=== PATIENT | male | born 1945 | race American Indian/Alaskan Native ===

== ENCOUNTER 2017-05-04 07:35 | Day surgery (SDC) | payer MEDICARE ==
[2017-05-01 11:33] VITALS: BMI 31.6
[2017-05-04] MEDS ORDERED: DiphenhydrAMINE 50 mg/ml Inj ONE (09:09)
[2017-05-04] MEDS ORDERED: Midazolam 2 MG/2 ML VIAL ONE (09:29)
[2017-05-04] MEDS ORDERED: Iodixanol 320 MG/ML 100 ML BOTTLE IV ONE ×2 (09:29→09:55)
[2017-05-04] MEDS ORDERED: Nitroglycerin 50mg in D5W 50 MG/250 ML BOTTLE IV ONE (09:50)
[2017-05-04 14:08] VITALS: BP 154/92; PULSE 70; RESP 18; TEMP 98.2; O2SAT 70
--- NOTE | 2017-05-07 05:01 | CARDCATH ---
PROCEDURE DATE: 05/04/2017 PROCEDURES: 1. Coronary angiography. 2. Left ventricular angiography. 3. Radiological supervision and interpretation of the coronary angiography and left ventricular angiography. CLINICAL INDICATIONS: 1. Exertional angina. 2. Abnormal stress test. 3. Hypertension. 4. Hyperlipidemia. 5. . PERFORMING PHYSICIAN: Dr. Ritchie Maddox. PROCEDURE: After informed consent the patient was prepped and draped in the usual sterile fashion. A 2% Lidocaine was given in the right wrist for local anesthesia. Using micropuncture technique, 6 [place] was introduced into right radial artery. A 6 [place] catheter was engaged into left main coronary artery. Left coronary injection has revealed left main divided into left anterior descending coronary artery and left circumflex coronary artery. Left main, left anterior descending artery and diagonal branches are patent. Left circumflex and obtuse marginal branch are patent. Right coronary artery was engaged using JR4 6 [place] diagnostic catheter. Right coronary angiography has revealed patent and dominant right coronary artery, marginal arteries and PDA. Using a 0.031 support wire JR4 catheter inserted into left ventricle. Hand injection was performed. Hand injection of the left ventricle confirmed normal LV systolic function with ejection fraction of 60%. No wall motion abnormalities noted. EDP 12. No gradient across the aortic valve. CONCLUSION: 1. Left coronary angiography. 2. Right coronary angiography. 3. Left ventricular angiography. Confirmed normal coronaries with normal LV systolic function. Recommend medical management. Ritchie Maddox MD
== END 2017-05-04 13:45 | disposition home or self-care (01) ==
LOC: C.CATHLAB 07:35
PROVIDERS: ATTEND Internal Medicine Cardiovascular Disease
DX: R94.39 Abnormal result of other cardiovascular function study (principal); I10 Essential (primary) hypertension; E78.5 Hyperlipidemia, unspecified
CPT/HCPCS: 93458; C1769; C1887; J1200; J1644; J2001; J2250; J2930; J3010; Q9967